=== PATIENT | male | born 1950 | race Caucasian/White ===

== ENCOUNTER 2016-09-30 08:23 | Emergency (ER) | payer MEDICARE, BC ==
[2016-09-30 08:47] VITALS: BP 154/85
--- NOTE | 2016-09-30 09:31 | ERNOTE ---
[id number]: 09/30/16 09:21 Source: patient Exam Limitations: no limitations - Immun/Allergies/Home Medications Immunizations: IMMUNIZATION HX Immunizations Up to Date Yes History of Influenza Vaccine Yes Hx Pneumococcal Vaccination Yes Allergies/Adverse Reactions: Allergies Allergy/AdvReac Type Severity Reaction Status Date / Time No Known Allergies Allergy Verified 09/30/16 08:47 Home Medications: HOME MEDICATIONS NK [No Home Medication] 09/01/13 [Last Taken Unknown] - History of Present Illness Narrative: Patient slipped on ice and fell six days ago, fell forward and hurt his left wrist, no further injuries, has been taking tylenol but wants to make sure that it is not broken Date (Duration): 09/24/16 Occurred: other Severity: mild Method of Injury: Reports: fell Reason for Fall: Reports: slipped Loss of Consciousness: Reports: no loss of consciousness Modifying Factors - (Improves): Reports: pain medication, rest Modifying Factors - (Worsens): Reports: movement Associated Symptoms: Denies: tingling, weakness, loss of power (rt arm) Other Injuries: Reports: none Review of Systems - Review of Systems Constitutional: Absent: recent illness, fever Respiratory: Absent: shortness of breath Cardiology: Absent: chest pain Gastrointestinal/Abdominal: Absent: nausea, abdominal pain Neurological: Absent: weakness, numbness - Patient's Past Medical History Patient History - Medical: No pertinent hx Patient History - Cardiac/Respiratory: No pertinent hx Patient History - Cancer: No Hx of Cancer Patient History - Surgical Procedures: Total Hip Replacement - Social History Living Situations: spouse Smoking Status: Current every day smoker Have you smoked in the past 12 months: Yes Do you dip or chew tobacco: No Patient requests Smoking Cessation Consult: Yes Initiate information on Smoking Cessation: Yes Alcohol Use: occasionally Physical Exam - Physical Exam General Appearance: Present: wd/wn, alert, no apparent distress Respiratory: Present: no respiratory distress Cardiovascular/Chest: Present: normal peripheral pulses Extremity Exam: Present: normal inspection, other - left wrist tender on range of motion and on palpation over radial side of wrist and over snuff box Neurological Exam: Present: alert, oriented, no motor/sensory deficits Skin Exam: Present: normal color, warm/dry ED Progress - Vital Signs Patient's Vital Signs:: I have reviewed the patient's vital signs. Vital Signs: Vital Signs 09/30/16 08:42 Pulse Rate 65 Respiratory 14 Rate Blood Pressure 154/85 O2 Sat by Pulse 100 Oximetry - X-Ray X-Ray #1 X-Ray: wrist - DGD, no definite fracture Interpretation: Interp. by me - Progress/Reassessment Progress Note-Subjective: 09/30/16 09:29 explained Xray results, most likely just sprain Departure Clinical Impression: Left wrist sprain Qualifiers: Encounter type: initial encounter Qualified Code(s): S63.502A - Unspecified sprain of left wrist, initial encounter - Departure Disposition: Home self-care Condition: Good Instructions: Wrist Sprain Additional Instructions: take tylenol and ibuprofen as needed for pain if the symptoms don't resolve over the next week call the orthopedic office for follow Referrals: Kaleb Posey MD [Staff Physician] -
== END 2016-09-30 09:39 | disposition home or self-care (01) ==
LOC: ER 08:23
DX: S63.502A Unspecified sprain of left wrist, initial encounter (principal); F17.210 Nicotine dependence, cigarettes, uncomplicated; W01.0XXA Fall on same level from slipping, tripping and stumbling without subsequent striking against object, initial encounter

== ENCOUNTER 2016-12-04 08:23 | Emergency (ER) | payer MEDICARE, BC ==
[2016-12-04 09:29] LABS: Hematocrit 40.4 % (42.0-52.0); Hemoglobin 13.4 gm/dL (13.5-18.0); Mean Cell Volume 91.4 fl (78-100); Mean Corpuscular Hemoglobin 30.3 pg (27-31); Mean Corpuscular Hgb Conc 33.2 g/dl (32-36); Neutrophil # 6.3 K/mm3 (1.3-6.0); Neutrophil % 73.5 % (42-75.0); Platelet Count 230 K/mm3 (150-450); Red Blood Count 4.42 M/mm3 (4.7-6.0); Red Cell Distribution Width 13.3 % (11.5-14.0); White Blood Count 8.6 K/mm3 (4.0-10.5)
--- NOTE | 2016-12-04 10:15 | ERNOTE ---
Date of Service: 12/04/16 Stated Complaint: COLD Presenting Symptoms:: cough Source: patient, family - spouse Exam Limitations: no limitations Immunizations: IMMUNIZATION HX Immunizations Up to Date Yes History of Influenza Vaccine Yes Hx Pneumococcal Vaccination Yes Allergies/Adverse Reactions: Allergies No Known Allergies Allergy (Verified 12/04/16 08:37) Home Medications: HOME MEDICATIONS Amox Tr/Potassium Clavulanate [Augmentin 875-125 Tablet] 1 tab PO Q12H #20 tab 12/04/16 [Last Taken Unknown] Benzonatate [Tessalon Perle] 2 cap PO Q8H PRN #30 capsule 12/04/16 [Last Taken Unknown] Ibuprofen [Motrin] 1 tab PO Q8H PRN #90 tab 12/04/16 [Last Taken Unknown] - History of Present Ilness Narrative: Presents with c/o nonproductive cough, fever, chills, malaise, and left ear pain for about one week. Claims fevers have subsided, but he still feels drained of energy and continues to have left ear pain. Timing: constant Severity: moderate Modifying Factors - Improves: Reports: rest Modifying Factors - Worsens: Reports: activity Associated Symptoms: Reports: cough, earache, fever/chills. Denies: chest pain/ soreness, shortness of breath, wheezing, facial pain, nasal congestion, nasal drainage, dizziness, lightheadedness, headache, sore throat, muscle aches Review of Systems - Review of Systems Constitutional: Present: See HPI, fever, chills, malaise EYE: Present: no symptoms reported - Patient's Past Medical History Patient History - Medical: No pertinent hx Patient History - Cardiac/Respiratory: No pertinent hx Patient History - Cancer: No Hx of Cancer Patient History - Surgical Procedures: Total Hip Replacement Patient History - Other: None - Social History Living Situations: home Psych History: No pertinent hx Alcohol Use: none Drug Use: none - Immunizations Immunizations Up to Date: Yes Hx Pneumococcal Vaccination: Yes History of Influenza Vaccine: Yes Physical Exam - Physical Exam General Appearance: Present: wd/wn, alert, no apparent distress Eye Exam: Normal inspection: bilateral, PERRL: bilateral, EOMI: bilateral Ears, Nose, Throat: Present: abnormal TM (L) - erythematous Neck: Present: normal inspection, nontender Respiratory: Present: no respiratory distress, normal breath sounds, no accessory muscle use, chest nontender, lungs clear Cardiovascular/Chest: Present: regular rate, rhythm, no murmur, normal peripheral pulses Neurological Exam: Present: alert, oriented, normal mood/affect Skin Exam: Present: normal color, warm/dry ED Progress - Results and Orders Patient's Lab Results:: I have reviewed the patient's lab results. - Vital Signs Patient's Vital Signs:: I have reviewed the patient's vital signs. Vital Signs: Vital Signs 12/04/16 08:33 Temperature 37.4 C Pulse Rate 73 Respiratory 12 Rate Blood Pressure 116/51 O2 Sat by Pulse 96 Oximetry - X-Ray X-Ray #1 X-Ray: chest Interpretation: Reviewed by me - LLL infiltrates vs. atelectasis - Progress/Reassessment Chief Complaint: Cough Departure - Departure Clinical Impression: CAP (community acquired pneumonia), Acute otitis media, left Disposition: Home self-care Condition: Good Instructions: Community-Acquired Pneumonia, Adult, [id number], Otitis Media, Adult, [id number] Referrals: Matt Feliz DO [Primary Care Provider] - Prescriptions: Amox Tr/Potassium Clavulanate [Augmentin 875-125 Tablet] 1 tab PO Q12H #20 tab Benzonatate [Tessalon Perle] 2 cap PO Q8H PRN #30 capsule PRN Reason: Cough Ibuprofen [Motrin] 1 tab PO Q8H PRN #90 tab PRN Reason: Pain, fever, bodyaches
[2016-12-04 10:36] VITALS: BP 151/75
== END 2016-12-04 11:02 | disposition home or self-care (01) ==
LOC: ER 08:23
DX: J18.9 Pneumonia, unspecified organism (principal); H66.92 Otitis media, unspecified, left ear